=== PATIENT | male | born 1960 | race Caucasian/White ===

== ENCOUNTER 2020-07-01 00:36 | Emergency (ER) | payer BC ==
[~2020-07-01] VITALS: Ht 165.1 cm; Wt 79.5 kg
[~2020-07-01 00:36] MED LIST: NO HOME MEDICATIONS; PERCOCET 5/321 UDTAB PO
[2020-07-01 00:41] VITALS: BP 126/83; PULSE 100; TEMP 98.2
== END 2020-07-01 05:15 | disposition left against medical advice (07) ==
LOC: COL.ER 00:36
DX: F10.129 Alcohol abuse with intoxication, unspecified (principal); S00.83XA Contusion of other part of head, initial encounter; Z53.29 Procedure and treatment not carried out because of patient's decision for other reasons; W19.XXXA Unspecified fall, initial encounter; Y93.01 Activity, walking, marching and hiking; Y92.481 Parking lot as the place of occurrence of the external cause